=== PATIENT | female | born 1960 | race African-American/Black ===

== ENCOUNTER 2017-09-22 10:47 | Emergency (ER) | payer MEDICAID ==
[~2017-09-22] VITALS: Ht 162.6 cm; Wt 68.0 kg
[2017-09-22 10:57] VITALS: BP 148/85
[2017-09-22] MEDS ORDERED: Tylenol #3 tab (300mg/30mg) ORAL ONE (12:45)
[2017-09-22] MEDS ORDERED: IBUPROFEN600 MG ORAL (13:21)
[2017-09-22] MEDS ORDERED: NORCO 5-325 TA1 EACH ORAL (13:21)
[2017-09-22 13:48] VITALS: BP 137/82
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
--- NOTE | 2017-09-22 14:48 | Diagnostic Imaging Report ---
Indication: Reason For Exam: PAIN Technique: 3 views of the left ankle Comparison: none Findings: No acute fractures. No dislocations. Joint spaces are preserved. Normal mineralization. No radiopaque foreign body. Impression: Negative
--- NOTE | 2017-09-22 14:52 | Diagnostic Imaging Report ---
Indication: Reason For Exam: PAIN Technique: 3 views left foot Comparison: none Findings: There are nondisplaced fractures of the proximal aspects of the third and fourth metatarsal shafts no other acute fractures. No dislocations. The joint spaces are preserved. Impression: Positive for nondisplaced third and fourth metatarsal fractures This agrees with the impression reported by the emergency room physician in the electronic medical record
== END 2017-09-22 13:55 | disposition home or self-care (01) ==
LOC: EDBD 10:47 → EMR 11:05
DX: S92.345A Nondisplaced fracture of fourth metatarsal bone, left foot, initial encounter for closed fracture (principal); S92.335A Nondisplaced fracture of third metatarsal bone, left foot, initial encounter for closed fracture; V09.9XXA Pedestrian injured in unspecified transport accident, initial encounter; Y92.9 Unspecified place or not applicable
CPT/HCPCS: 29515; 99284